=== PATIENT | male | born 1935 | race Caucasian/White ===

== ENCOUNTER 2018-06-28 16:56 | Emergency (ER) | payer OTHER, BC ==
[~2018-06-28] VITALS: Ht 175.3 cm; Wt 84.8 kg
[2018-06-28 19:31] VITALS: BP 174/71
== END 2018-06-28 19:32 | disposition home or self-care (01) ==
LOC: EME 16:56
DX: E11.649 Type 2 diabetes mellitus with hypoglycemia without coma (principal); I10 Essential (primary) hypertension; E78.5 Hyperlipidemia, unspecified; Z87.891 Personal history of nicotine dependence; Z79.4 Long term (current) use of insulin; Z88.8 Allergy status to other drugs, medicaments and biological substances
CPT/HCPCS: 99281; 99284